=== PATIENT | male | born 1960 | race Caucasian/White ===

== ENCOUNTER → 2016-05-28 | Outpatient (CLI) | payer MEDICAID ==
[~2016-05-28] MED LIST: ADVIL200 M1 PO; ADVIL200 MG PO; AUGMENTIN 875-1 EACH PO; COLACE100 MG; DURAGESIC 25MC25 MCG TOP; FLAGYL500 M1 PO; FLAGYL500 MG PO; FLORASTOR250 MG PO; HYDROCODON-ACE1 EAC4 PO; HYDROCORT 1/2 %30 GM TOP; LEVAQUIN 750 M750 MG PO; LEVAQUIN500 MG PO; NEURONTIN300 MG PO; NORCO 5-325 TA1 EACH PO; PERCOCET 5-3251 EACH PO; ROXICODONE 5MG (5 MG; TYLENOL325 MG; TYLENOL325 MG PO
== END | disposition disaster alternative care site (69) ==
LOC: GRAD 07:20
DX: C20 Malignant neoplasm of rectum (principal); K65.1 Peritoneal abscess; M53.3 Sacrococcygeal disorders, not elsewhere classified; Z98.890 Other specified postprocedural states
CPT/HCPCS: Q9967

== ENCOUNTER 2016-06-11 13:38 | Observation (INO) | payer MEDICAID ==
[~2016-06-11] VITALS: Ht 172.7 cm; Wt 66.0 kg
--- NOTE | ~2016-06-11 | PN ---
PATIENT'S NAME: CHUCHO YAN I [facility] AGE: 55 Y [address] ROOM: [address] [address] LOCATION: GPCU ADMIT DATE: 06/11/2016 Progress Notes DISCHARGE DATE: 06/13/2016 FAMILY PHYSICIAN: Jan Sauceda MD ATTENDING PHYSICIAN: Gopal Loving V DATE OF SERVICE: 06/13/2016 This patient was transferred today to the [facility] as mentioned in the prior note. MD PRINCE MONTAÑO/jd /[id number] d: 06/13/16 1549 t: 06/18/16 1818, PROGRESS NOTES
--- NOTE | ~2016-06-11 | HP ---
PATIENT'S NAME: CHUCHO YAN I [facility] AGE: 55 Y [address] ROOM: [place] [address] LOCATION: GPCU ADMIT DATE: 06/11/2016 History & Physical DISCHARGE DATE: FAMILY PHYSICIAN: VALENTINA VAUGHN MD ATTENDING PHYSICIAN: CAMERON WHITFIELD V DATE OF SERVICE: CHIEF COMPLAINT: Anal leakage. HISTORY OF PRESENT ILLNESS: The patient is a 55-year-old male with past medical history most significant for a left colectomy with a colostomy for colon cancer. The patient has chronic pelvic abscesses as a result of the surgery for which he is intermittently on antibiotics. He reports that he stopped taking his antibiotics approximately 1 week ago as instructed by the Infectious Disease consult. Subsequent to that, he developed increased purulent drainage from his rectum. He endorses continued abdominal discomfort which is not out of proportion with his baseline. He endorses maybe some chills, but no significant fevers, nausea, vomiting, or palpitations. REVIEW OF SYSTEMS: All systems have been reviewed and are negative aside from the pertinent positives mentioned above. PAST MEDICAL HISTORY: Significant for colon cancer, left hemicolectomy, and recurrent abscesses. CURRENT MEDICATIONS: 1. Ibuprofen. 2. Levaquin. 3. Metronidazole. SOCIAL HISTORY: Negative for any ongoing toxic habits. FAMILY HISTORY: Reviewed and noncontributory due to no underlying etiology for his presentation. PHYSICAL EXAMINATION: VITAL SIGNS: Temperature 98.0, pulse is 65, respirations are 18, blood pressure 118/77, and saturating 100% on room air. GENERAL: Appears well-developed, slightly malnourished middle-aged male, in PATIENT'S NAME: CHUCHO YAN I [facility] AGE: 55 Y [address] ROOM: [place] [address] LOCATION: GPCU ADMIT DATE: 06/11/2016 History & Physical DISCHARGE DATE: FAMILY PHYSICIAN: VALENTINA VAUGHN MD ATTENDING PHYSICIAN: CAMERON WHITFIELD V no acute distress. Nontoxic. ENT: Reveals no stridor. EYES: Shows pupils are equal and reactive to light. LYMPHATICS: Shows no cervical lymphadenopathy. ENDOCRINE: Shows no thyromegaly. LUNGS: Clear to auscultation in all jalloh. CARDIOVASCULAR: Heart rate is regular with no appreciable murmurs, gallops, or rubs. GASTROINTESTINAL: Abdomen is soft, nontender, and nondistended. Empty colostomy bag. VASCULAR: Reveals 2+ pedal pulses. MUSCULOSKELETAL: No muscle or joint abnormalities. PSYCHIATRIC: Appropriate mood, cognition, and affect. SKIN: Warm and dry. LABORATORY DATA AND IMAGING STUDIES: Review of studies from his PCPs office where he was sent from today shows a white count of 7.3, hemoglobin of 12.6, and platelets of 371,000. Sedimentation rate of 18. ASSESSMENT AND PLAN: 1. This is a 55-year-old male, who will be admitted for recurrent pelvic abscesses. We will do a CAT scan of his abdomen and pelvis with contrast. We will restart him on his Levaquin and Flagyl. We will decide as to what the appropriate course of action is based on the results of the CAT scan. This may include a surgical consultation versus IR drainage versus continued oral antibiotics. 2. Deep venous thrombosis prophylaxis will be pharmacologic given that he has a history of malignancy which has not yet been declared as cured. 3. Symptomatic support. We will provide him with Tylenol as needed for pain. 4. I do notice that the patient is taking large amounts of ibuprofen and he will be advised about the dangers of that. We will also put him on a PPI. Additional management will depend on his clinical course. Time dedicated to this patient's encounter is 35 minutes. MD LORE CARRERA/jd PATIENT'S NAME: CHUCHO YAN I [facility] AGE: 55 Y [address] ROOM: [place] [address] [facility] ADMIT DATE: 06/11/2016 History & Physical DISCHARGE DATE: FAMILY PHYSICIAN: VALENTINA VAUGHN MD ATTENDING PHYSICIAN: CAMERON WHITFIELD V /[id number] D: 311 T: HISTORY & PHYSICAL
--- NOTE | ~2016-06-11 | CON ---
PATIENT'S NAME: CHUCHO YAN I [facility] AGE: 55 Y [address] ROOM: [place] [address] LOCATION: GPCU ADMIT DATE: 06/11/2016 Consultation DISCHARGE DATE: FAMILY PHYSICIAN: VALENTINA VAUGHN MD ATTENDING PHYSICIAN: CAMERON WHITFIELD V DATE OF CONSULTATION: 06/12/2016 HISTORY OF PRESENT ILLNESS: This is a complex history of a 55-year-old male, who before underwent a resection of a high rectal carcinoma with an end-colostomy and Elida pouch. He had a chemotherapy and radiation therapy as well. 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 It is rather small to be approached percutaneously. It has been drained via the rectum several times by the surgeon, but continues to be an issue. The patient is admitted because of persistent drainage and discomfort. He is afebrile. He has a normal white count. He has been now placed on intravenous antibiotics. I have reviewed the CT scan in detail. I have reviewed his medications, allergies, operations, and medical problems. REVIEW OF SYSTEMS: Fourteen-point otherwise surgically noncontributory. FAMILY HISTORY: Surgically noncontributory. SOCIAL HISTORY: Surgically noncontributory. PHYSICAL EXAMINATION: VITAL SIGNS: Afebrile. Vital signs stable. GENERAL: Comfortable. SKIN: Turgor is satisfactory. Color good. CHEST: Bilateral breath sounds. ABDOMEN: Soft. No mass or organomegaly. Good ostomy functioning. EXTREMITIES: On examination of his perineum, his anus looks fine. There is no obvious drainage that I can see. RECTAL: He did not allow me to do a rectal exam. IMPRESSION: My impression of this is several points, one of the questions is whether there is enough rectum left exclusive of the fistula site to do a low anterior PATIENT'S NAME: CHUCHO YAN I [facility] AGE: 55 Y [address] ROOM: [address] [address] LOCATION: GPCU ADMIT DATE: 06/11/2016 Consultation DISCHARGE DATE: FAMILY PHYSICIAN: VALENTINA VAUGHN MD ATTENDING PHYSICIAN: CAMERON WHITFIELD V resection with an EEA as there are some surgeons who can do this, who do only this type of surgery within 1 and 2 cm of the anal verge. If the tissue is not healthy or not long enough or affected by radiation endarteritis and the patient is going to have a permanent end-ostomy, then the second question is whether because of the protracted nature of this process to resect the Elida en bloc with the draining sinus fistula, and partially close or completely close this area similar to a Miles' resection and an abdominoperineal resection. They apparently are going to go to [place] to see specifically colorectal surgeon who does only these type of procedures, and I have spoken with them about the issue and the whole family. One of the family members is a nurse who has explained much of the details. I concur with treatment right now that being intravenous antibiotics, but I would advice referral to a colorectal surgeon who does nothing but very low anterior resections and deals with issues like this. MD PRINCE MONTAÑO/jd /[id number] d: 06/12/16 1534 t: 06/13/16 0941, CONSULTATION REPORT
--- NOTE | ~2016-06-11 | DS ---
PATIENT'S NAME: CHUCHO YAN I [facility] AGE: 55 Y [address] ROOM: [place] [address] LOCATION: GPCU ADMIT DATE: 06/11/2016 Discharge Summary DISCHARGE DATE: FAMILY PHYSICIAN: Jan Sauceda MD ATTENDING PHYSICIAN: Gopal Loving V This patient is actually being transferred to [facility] for higher level of care. He needs a colorectal surgical consult. PRINCIPAL DIAGNOSIS: Pelvic abscess. SECONDARY DIAGNOSIS: Colon cancer, status post resection and colostomy, status post radiation and chemotherapy. HOSPITAL COURSE: Briefly, this is a 55-year-old gentleman who underwent resection of high rectal carcinoma with end-colostomy and Elida pouch before . He also had chemo and radiation therapy as well. 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 It was approached in the past percutaneously, but it still has persisted and continues to drain. He was admitted again with a similar complaint, and a CAT scan showed decrease in size of the abscess. A surgical consultation was obtained which recommended a colorectal surgeon for a more definitive solution of this problem. I had the pleasure to speak to one of the colorectal surgeons at [facility], Dr. Schaefer, who graciously accepted this patient, and the patient is being transferred to [facility]. TRANSFER MEDICATIONS: Include: 1. Ertapenem 1 g IV every day. 2. Docusate 100 mg p.o. 3 times daily. 3. Lovenox for DVT prophylaxis. 4. Pantoprazole 40 mg p.o. daily. 5. Morphine 1 mg every 2 hours p.r.n. as needed for pain. 6. Ondansetron 4 mg IV q.6 hours. ACTIVITY: As tolerated. DIET: Regular diet. I spent 35 minutes in transfer coordination of this patient. PATIENT'S NAME: CHUCHO YAN I [facility] AGE: 55 Y [address] ROOM: [place] [address] [facility] ADMIT DATE: 06/11/2016 Discharge Summary DISCHARGE DATE: FAMILY PHYSICIAN: Jan Sauceda MD ATTENDING PHYSICIAN: Gopal Loving MD MAK/jd /[id number] d: 06/13/16 1106 t: 06/15/16 1215, DISCHARGE SUMMARY
[~2016-06-11 13:38] MED LIST changes: -ADVIL200 MG PO; -ROXICODONE 5MG (5 MG
[2016-06-11] MEDS ORDERED: ADVIL200 MG PO (14:34)
--- NOTE | 2016-06-11 14:39 | NUR ---
Pt is 55 y/o male admit for recurring pelvic abscess for hospitalist. No allergies. Pt has hx rectal cancer with rectum removed and a Hartmans pouch constructed,a pelvic abscess following his rectal surgery in January, has a colostomy,arthritis,pneumonia. Currently has clear to [place] drg from his anal area which he states is foul smelling. Pt states he's had problems with an abscess since his surgery and has been on antibiotics for 3 weeks. Pt resides at home with his and son. He is alert and oriented x3.
--- NOTE | 2016-06-11 16:56 | NUR ---
Significant Event: A/Ox3. VSS. CT with contrast of abdomen/pelvis. Up SBA. Colostomy patient does cares independently. No output this shift. 2 [place] given x1 at 1650 for pain in lower back.
--- NOTE | 2016-06-11 17:12 | NUR ---
[address] powerglide[address] Able to access rt basilic but unable to thread catheter. Unable access vein on lt side. Pt had anxiety throughout the procedure.
--- NOTE | 2016-06-12 04:43 | NUR ---
Significant Event: A/O, VSS, RA, [place] x2 for lower back pain and headache, ad tristian in room, patient does own colostomy cares, voiding per usual Follow up: continue plan of care
[2016-06-12 11:25] LABS: BASOPHIL % 0.6 %; EOSINOPHIL # 0.2 K/uL (0.0-0.5); EOSINOPHIL % 3.6 %; HEMATOCRIT 32.6 % (37.0-53.0); HEMOGLOBIN 10.5 g/dL (12.0-17.0); IMMATURE GRANULOCYTE # 0.1 K/uL (0.0-0.3); IMMATURE GRANULOCYTE % 1.2 %; LYMPHOCYTE # 0.7 K/uL (0.8-4.0); LYMPHOCYTE % 14.3 %; MCH 25.9 pg (27.0-34.0); MCHC 32.2 gm/dL (32.0-36.5); MCV 80.5 fl (83.0-98.0); MONOCYTE # 0.8 K/uL (0.0-1.0); MONOCYTE % 16.3 %; MPV 9.3 fl (9.4-12.4); NEUTROPHIL # (ANC) 3.2 K/uL (1.4-9.0); NRBC % 0 /100WBC (0-0.00); PLATELET COUNT 303 K/uL (150-450); RBC 4.05 M/uL (4.00-6.00); RDW-CV 17.6 % (11.9-14.6)
[2016-06-12 11:37] LABS: ANION GAP 9.9 (10.0-19.0); BLOOD UREA NITROGEN 16 mg/dL (6-24); CALCIUM 8.4 mg/dL (8.5-10.5); CHLORIDE 107 mMol/L (96-110); CO2 28 mMol/L (22-32); ESTIMATED GFR (MDRD EQUATION) > 60; POTASSIUM 3.9 mMol/L (3.7-5.1); SODIUM 141 mMol/L (135-145)
--- NOTE | 2016-06-12 15:53 | NUR ---
Significant event: A&Ox3. HR 50-70's. SBP 98-100's. Afebrile. RA. Lung sounds clear/diminished. Bowel sounds active. Patient does self-cares for colostomy. Dr. Hutchison consulted, spoke with patient, agrees with current plan of care, but suggests patient should see the specialist that patients ID doctor is recommending, once the appointment is made. Zofran given x 1 at 1409, nausea relieved. Good appetite. Follow Up: Continue current POC
[2016-06-13 03:29] LABS: BASOPHIL % 0.9 %; EOSINOPHIL # 0.2 K/uL (0.0-0.5); EOSINOPHIL % 5.3 %; HEMATOCRIT 31.6 % (37.0-53.0); IMMATURE GRANULOCYTE % 0.9 %; LYMPHOCYTE # 0.8 K/uL (0.8-4.0); LYMPHOCYTE % 17.7 %; MCH 25.6 pg (27.0-34.0); MCHC 31.6 gm/dL (32.0-36.5); MONOCYTE # 0.8 K/uL (0.0-1.0); MONOCYTE % 18.1 %; MPV 9.2 fl (9.4-12.4); NEUTROPHIL # (ANC) 2.5 K/uL (1.4-9.0); NEUTROPHIL % 57.1 %; NRBC % 0 /100WBC (0-0.00); PLATELET COUNT 284 K/uL (150-450); RDW-CV 17.5 % (11.9-14.6); WBC 4.3 K/uL (4.0-11.0)
[2016-06-13 03:45] LABS: ALK PHOS 88 IU/L (33-138); ALT 14 IU/L (12-78); ANION GAP 10.1 (10.0-19.0); AST 13 IU/L (10-40); BLOOD UREA NITROGEN 14 mg/dL (6-24); CALCIUM 8.6 mg/dL (8.5-10.5); CHLORIDE 108 mMol/L (96-110); CO2 28 mMol/L (22-32); CREATININE 1.1 mg/dL (0.6-1.3); ESTIMATED GFR (MDRD EQUATION) > 60; POTASSIUM 4.1 mMol/L (3.7-5.1); SODIUM 142 mMol/L (135-145); TOTAL PROTEIN 6.7 g/dL (6.0-8.4)
[2016-06-13 03:48] LABS: TOTAL BILIRUBIN 0.2 mg/dL (0.0-1.5)
--- NOTE | 2016-06-13 06:51 | NUR ---
Significant Event: Patient alert and oriented x3. SBP 99-107. All other vital signs stable. On RA. Independent in room. Self ostomy cares. Complained of pain to ostomy/back and headache. [place] 2 tabs given x2 with relief. Calm and cooperative with all cares. Follow up: See specialist in [place] soon?
--- NOTE | 2016-06-13 11:09 | NUR ---
Patient is to transfer to [facility] via private auto. Patient is in Sinus [place], occasionally Sinus malaika with rates of 50's. Afebrile. On Room air, lung sounds are clear/diminished. Alert and oriented x 3. Patient has been recieving IV invanz Qday. Bowel sounds are active. Patient has colostomy, and does self cares. Patient occasionally has anal drainage, clear to [place] foul odor. MD wants patient transferred to a specialist, for his recurrent pelvic abscess. Patient has IV to L) FA, patent; patient is a hard IV stick. [place] for pain in pelvic area, occasionaly has c/o JOEL.
[2016-06-22] MEDS ORDERED: ROXICODONE 5MG (5 MG (11:09)
== END 2016-06-13 12:00 | disposition critical access hospital (66) ==
LOC: GPCU 13:38
PROVIDERS: Internal Medicine; Surgery; ADMIT Internal Medicine
DX: T81.4XXA Infection following a procedure, initial encounter (principal); T36.95XA Adverse effect of unspecified systemic antibiotic, initial encounter; I82.409 Acute embolism and thrombosis of unspecified deep veins of unspecified lower extremity; Z85.038 Personal history of other malignant neoplasm of large intestine; Z90.49 Acquired absence of other specified parts of digestive tract; Z93.3 Colostomy status; Z79.899 Other long term (current) drug therapy
CPT/HCPCS: C1751; G0378; G0379; J1335; J1650; J2405; J7050; Q9967